=== PATIENT | male | born 1990 | race Caucasian/White ===

== ENCOUNTER 2019-10-25 06:07 | Emergency (ER) | payer MEDICAID ==
[~2019-10-25] VITALS: Ht 177.8 cm; Wt 90.7 kg
[2019-10-25 06:07] VITALS: BP_SYST 121
--- NOTE | 2019-10-25 06:07 | NUR ---
deputy meliton lobo at bedside with patient.
--- NOTE | 2019-10-25 06:07 | NUR ---
Patient to ER CHAIR to gown for evaluation. Side rails up.
--- NOTE | 2019-10-25 06:10 | NUR ---
ER Dr. Everett at bedside examining patient.
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
--- NOTE | 2019-10-25 07:09 | NUR ---
Patient transported to radiology via gurney, accompanied by staff.
--- NOTE | 2019-10-25 07:10 | NUR ---
report given to JOSEFA Lubin for continuation of care.
--- NOTE | 2019-10-25 08:21 | NUR ---
Patient given written and verbal discharge instructions and verbalizes understanding. ER MD Manning discussed with patient the results and treatment provided. Patient in stable condition. ID arm band removed. Patient educated on pain management and to follow up with PMD. Pain Scale 2/10. Opportunity for questions provided and answered. Medication side effect fact sheet provided.
[2019-10-25 08:23] VITALS: BP_SYST 121
== END 2019-10-25 08:21 ==
LOC: SED 06:07
DX: R51 Headache (principal); M54.2 Cervicalgia
CPT/HCPCS: 70450-TC; 72125-TC; 82962; 99285

== ENCOUNTER 2021-05-12 17:49 | Emergency (ER) | payer MEDICAID ==
[~2021-05-12] VITALS: Ht 177.8 cm; Wt 90.7 kg
[2021-05-12 17:52] VITALS: BP_SYST 151
[2021-05-12 19:06] LABS: BILIRUBIN,URINE NEGATIVE (NEGATIVE); BLOOD, URINE NEGATIVE (NEGATIVE); CLARITY/URINE CLEAR (CLEAR); COLOR,URINE YELLOW (YELLOW); GLUCOSE,URINE NEGATIVE (NEGATIVE); KETONES,URINE NEGATIVE (NEGATIVE); LEUKOCYTE ESTERASE ,URINE NEGATIVE (NEGATIVE); NITRITE, URINE NEGATIVE (NEGATIVE); PROTEIN URINE TRACE (NEGATIVE)
[2021-05-12] MEDS ORDERED: MORPHINE 4 MG INJ. 4 MG/ML VIAL IM ONE (20:30)
[2021-05-12] MEDS ORDERED: IBUP-1969 PO (20:44)
[2021-05-12] MEDS ORDERED: CYCL10TA24 PO (20:44)
[2021-05-12] MEDS ORDERED: HYDR-3917 PO (20:44)
[2021-05-12 20:51] VITALS: BP_SYST 138
== END 2021-05-12 21:14 | disposition home or self-care (01) ==
LOC: SED 17:49
DX: S39.012A Strain of muscle, fascia and tendon of lower back, initial encounter (principal); Z79.899 Other long term (current) drug therapy; X50.9XXA Other and unspecified overexertion or strenuous movements or postures, initial encounter; Y93.89 Activity, other specified; Y92.89 Other specified places as the place of occurrence of the external cause; Y99.8 Other external cause status
CPT/HCPCS: 72100; 81003; 96372; 99284; J2270